=== PATIENT | female | born 1990 | race Caucasian/White ===

== ENCOUNTER 2017-02-02 13:48 | Emergency (ER) | payer SELFPAY ==
[~2017-02-02 13:48] MED LIST: BENADRYL 50MG C50 MG PO; CIPRO500 MG OR; DEPO-PROVER150 MG/ML IM; GENTAMICIN15 ML/BTL OP; LORTAB 5 OR; MEDDOSEPAK PO; MIRALAX3350 N1 PO; MOTRIN600 MG OR; PEPCID20 MG PO; TRAMADOL HCL50 MG OR; ULTRAM50 MG OR; ZITHROMAX250 MG OR; ZITHROMAX500 MG OR
== END 2017-02-02 14:19 | disposition left against medical advice (07) | DRG 951 ==
LOC: ED 13:48 → LWOBS 14:05
DX: Z91.19 Patient's noncompliance with other medical treatment and regimen (principal)

== ENCOUNTER 2021-03-26 13:19 | Emergency (ER) | payer OTHER ==
[~2021-03-26] VITALS: Ht 154.9 cm; Wt 72.0 kg
[~2021-03-26 13:19] MED LIST changes: +PRENATA3 PO; +TAM75CAP PO
[2021-03-26 13:25] VITALS: BP 131/64
[2021-03-26 14:44] LABS: URINE BILIRUBIN - DIPSTICK NEGATIVE (NEGATIVE); URINE BLOOD DIPSTICK MODERATE (NEGATIVE); URINE COLOR YELLOW; URINE GLUCOSE - DIPSTICK NEGATIVE (NEGATIVE); URINE KETONE NEGATIVE (NEGATIVE); URINE LEUK ESTERASE NEGATIVE (NEGATIVE); URINE PROTEIN - DIPSTICK NEGATIVE (NEG-TRACE); URINE SPECIFIC GRAVITY >=1.030; URINE UROBILINOGEN - DIPSTICK 0.2 E.U./dL (0.2)
[2021-03-26 14:45] LABS: IMMATURE GRANULOCYTES 0.4 % (0.0-5.0); MEAN CELL VOLUME 82.6 fL CALC (80.0-100.0); MEAN CORPUSCULAR HGB CONC 31.5 g/dL CAL (32.0-36.0); NEUT# 9.65 thou/uL (2.00-7.15); RED CELL DISTRI WIDTH 14.1 % (11.5-15.5)
[2021-03-26 14:51] LABS: ALBUMIN 4.2 g/dL (3.2-5.0); ALKALINE PHOSPHATASE 74 u/l (38-126); BILIRUBIN, TOTAL 0.3 mg/dL (0.0-1.4); BUN 6 mg/dL (7-17); BUN/CREATININE RATIO 10 (12-20 (CALC)); CARBON DIOXIDE 21 mmol/l (22-30); CHLORIDE 102 mmol/l (95-108); CREATININE 0.6 mg/dL (0.5-1.0); GFR > 60 ML/MIN (>=60 (CALC)); GFR FOR AFR.AMER. > 60 ML/MIN (>=60 (CALC)); LIPASE 61 u/l (23-300); POTASSIUM 3.5 mmol/l (3.5-5.1); SGOT/AST 22 u/l (14-36); TOTAL PROTEIN 7.9 g/dL (6.3-8.2)
[2021-03-26 14:58] LABS: ANION GAP 15 (6-22 (CALC)); SODIUM 134 mmol/l (137-146); URINE NITRITE - DIPSTICK NEGATIVE (Negative)
[2021-03-26 14:59] LABS: HEMATOCRIT 41.3 % (37.0-47.0)
[2021-03-26 15:00] LABS: URINE SQUAMOUS EPITHELIAL CELL FEW EPI/hpf (0-FEW); URINE WBC 0-2 WBC/hpf (0-5)
[2021-03-26] MEDS ORDERED: METRONIDAZOL500 MG PO (17:38)
[2021-03-26] MEDS ORDERED: CIPROFLOXACN500 MG PO (17:38)
[2021-03-26] MEDS ORDERED: HYDROCO/APAP1 TA9 PO (17:39)
== END 2021-03-26 18:55 | disposition home or self-care (01) ==
LOC: ED 13:19
DX: K50.10 Crohn's disease of large intestine without complications (principal); Z87.442 Personal history of urinary calculi; Z20.822 Contact with and (suspected) exposure to COVID-19
CPT/HCPCS: Q9967

== ENCOUNTER 2023-06-01 22:28 | Emergency (ER) | payer SELFPAY ==
[~2023-06-01] VITALS: Ht 154.9 cm; Wt 77.0 kg
[~2023-06-01 22:28] MED LIST changes: +CIPROFLOXACN500 MG PO; +HYDROCO/APAP1 TA9 PO; +METRONIDAZOL500 MG PO
[2023-06-01 22:44] VITALS: BP 112/77
[2023-06-01 23:00] VITALS: BP 113/75
[2023-06-01 23:30] VITALS: BP 115/75
[2023-06-02] VITALS: BP 109/71
[2023-06-02 00:07] LABS: URINE BILIRUBIN - DIPSTICK Negative (NEGATIVE); URINE BLOOD DIPSTICK Negative (NEGATIVE); URINE COLOR Yellow; URINE GLUCOSE - DIPSTICK Negative (NEGATIVE); URINE KETONE Negative (NEGATIVE); URINE LEUK ESTERASE Moderate (NEGATIVE); URINE NITRITE - DIPSTICK Negative (Negative); URINE SPECIFIC GRAVITY 1.015; URINE UROBILINOGEN - DIPSTICK 0.2 E.U./dL (0.2)
[2023-06-02 00:08] LABS: URINE PROTEIN - DIPSTICK Negative (NEG-TRACE)
[2023-06-02 00:10] LABS: URINE BACTERIA FEW hpf; URINE EPITHELIAL CELLS FEW EPI/hpf (0-FEW)
[2023-06-02 00:16] LABS: BASO% 0.3 % (0-3); EOS% 2.4 % (0-8); HEMATOCRIT 39.2 % (37.0-47.0); HEMOGLOBIN 12.1 g/dl (12.0-16.0); IMMATURE GRANULOCYTES 0.2 % (0.0-5.0); LYMPH% 29.6 % (15-41); MEAN CELL VOLUME 78.1 fL CALC (80.0-100.0); MEAN CORPUSCULAR HGB 24.1 pG CALC (26.0-32.0); MEAN CORPUSCULAR HGB CONC 30.9 g/dL CAL (32.0-36.0); MONO% 6.7 % (2-13); NEUT# 6.04 thou/uL (2.00-7.15); NEUT% 60.8 % (42-76); RED BLOOD COUNT 5.02 mill/uL (4.20-5.60); RED CELL DISTRI WIDTH 16.1 % (11.5-15.5)
[2023-06-02 00:35] LABS: ALBUMIN 4.5 g/dL (3.2-5.0); ALKALINE PHOSPHATASE 81 u/l (38-126); AMYLASE 70 u/l (30-110); ANION GAP 11 (6-22 (CALC)); BILIRUBIN, TOTAL 0.4 mg/dL (0.02-1.3); BUN 8 mg/dL (7-17); BUN/CREATININE RATIO 12 (12-20 (CALC)); CARBON DIOXIDE 25 mmol/l (22-30); CHLORIDE 108 mmol/l (95-108); CREATININE 0.6 mg/dL (0.5-1.0); GFR FOR AFR.AMER. > 60 ML/MIN (>=60 (CALC)); GFR OTHER RACES > 60 ML/MIN (>=60 (CALC)); SGOT/AST 26 u/l (14-36); SODIUM 140 mmol/l (137-146); TOTAL PROTEIN 7.5 g/dL (6.3-8.2)
[2023-06-02 00:36] LABS: HCG SERUM/URINE (NEG/POS) NEGATIVE (NEGATIVE)
[2023-06-02 04:14] VITALS: BP 109/71
== END 2023-06-02 04:14 | DRG 394 ==
LOC: ED 22:28
PROVIDERS: Emergency Medicine
DX: K35.80 Unspecified acute appendicitis (principal); N39.0 Urinary tract infection, site not specified
CPT/HCPCS: J1956; Q9967